=== PATIENT | male | born 1965 | race Caucasian/White ===

== ENCOUNTER 2020-02-12 12:21 | Emergency (ER) | payer MEDICAID ==
--- NOTE | 2020-02-12 13:32 | EDM.PDOC ---
ED HPI GENERAL MEDICAL PROBLEM - General Chief Complaint: Genitourinary Problem Stated Complaint: Urinary problem Time Seen by Provider: 02/12/20 13:27 Source of Information: Reports: Patient, Provider (RN consulted [facility]), RN, RN Notes Reviewed History Limitations: Reports: No Limitations - History of Present Illness INITIAL COMMENTS - FREE TEXT/NARRATIVE: Pt presents to ER with c/o urinary frequency and retention following a "Resume" procedure. He had a Shepherd catheter for 6 days and was then to self cath if needed. He has had to urinate every 30 to 60 minutes since yesterday, passing about 100mls to 150mls of urine each time. Denies fever or chills, flank pain, or nausea. Onset: Gradual Duration: Constant Location: Reports: Other (Urinary) Quality: Reports: Pressure Severity: Moderate Improves with: Reports: None Worsens with: Reports: None Associated Symptoms: Reports: No Other Symptoms - Related Data Allergies Allergy/AdvReac Type Severity Reaction Status Date / Time [id number] Reductase Allergy Jaundice Verified 02/12/20 12:45 Inhibitor Home Meds: Home Meds Metoprolol Succinate 50 mg PO DAILY 02/12/20 [History] gemfibroziL [Gemfibrozil] 600 mg PO DAILY 02/12/20 [History] lisinopriL [Lisinopril] 10 mg PO DAILY 02/12/20 [History] Past Medical History HEENT History: Reports: None Cardiovascular History: Reports: None Respiratory History: Reports: None Gastrointestinal History: Reports: None Genitourinary History: Reports: Retention, Urinary, Other (See Below) Other Genitourinary History: rezum procedure Neurological History: Reports: None Psychiatric History: Reports: None Endocrine/Metabolic History: Reports: Diabetes, Type II Hematologic History: Reports: None Immunologic History: Reports: None Oncologic (Cancer) History: Reports: None Dermatologic History: Reports: None - Infectious Disease History Infectious Disease History: Reports: None - Past Surgical History Head Surgeries/Procedures: Reports: None Male Surgical History: Reports: Other (See Below) (Resume procedure) Musculoskeletal Surgical History: Reports: Other (See Below) Other Musculoskeletal Surgeries/Procedures:: hx back surgery Social & Family History - Tobacco Use Smoking Status *Q: Current Every Day Smoker Years of Tobacco use: 30 Packs/Tins Daily: 0.7 - Caffeine Use Caffeine Use: Reports: Coffee - Recreational Drug Use Recreational Drug Use: No - Living Situation & Occupation Living situation: Reports: Occupation: Disabled ED ROS GENERAL - Review of Systems Review Of Systems: Comprehensive ROS is negative, except as noted in HPI. ED EXAM, RENAL/ - Physical Exam Exam: See Below Exam Limited By: No Limitations General Appearance: Alert, WD/WN, No Apparent Distress Respiratory/Chest: No Respiratory Distress GI/Abdominal: Normal Bowel Sounds, Soft, Non-Tender (Male) Exam: No: Suprapubic Fullness Rectal (Males) Exam: Deferred Neurological: Alert, Oriented, No Motor/Sensory Deficits Psychiatric: Normal Mood Skin Exam: Warm, Dry, Intact Course - Vital Signs Last Recorded V/S: Last Vital Signs Temp 98.2 F 02/12/20 12:35 Pulse 85 02/12/20 12:35 Resp 18 02/12/20 12:35 BP 146/97 H 02/12/20 12:35 Pulse Ox 100 02/12/20 12:35 - Re-Assessments/Exams Free Text/Narrative Re-Assessment/Exam: 02/12/20 Bladder scanner with ~300mls. Pt voided 170mls with 130mls residual. Pt advised that a Shepherd catheter is not recommended at this time as he is voiding without large residuals. Departure - Departure Time of Disposition: 13:49 Disposition: Home, Self-Care 01 Condition: Good Clinical Impression: Encounter for medical screening examination, Postoperative urinary retention - Discharge Information *PRESCRIPTION DRUG MONITORING PROGRAM REVIEWED*: Not Applicable *COPY OF PRESCRIPTION DRUG MONITORING REPORT IN PATIENT BRIEN: Not Applicable Instructions: Medical Screening Exam Forms: ED Department Discharge Additional Instructions: Continue without a Shepherd catheter. Call your urologist if any further concerns. Sepsis Event Note (ED) - Evaluation Sepsis Screening Result: No Definite Risk - Focused Exam Vital Signs: Vital Signs Temp Pulse Resp BP Pulse Ox 02/12/20 12:35 98.2 F 85 18 146/97 H 100
== END 2020-02-12 14:02 | disposition home or self-care (01) ==
LOC: DL.ED 12:21
DX: N99.89 Other postprocedural complications and disorders of genitourinary system (principal); R33.9 Retention of urine, unspecified; E11.9 Type 2 diabetes mellitus without complications; F17.210 Nicotine dependence, cigarettes, uncomplicated; Z88.8 Allergy status to other drugs, medicaments and biological substances; Z79.899 Other long term (current) drug therapy
CPT/HCPCS: 99282; 99283